=== PATIENT | male | born 1975 | race Two or more races ===

== ENCOUNTER 2025-05-04 18:26 | Emergency (ER) | payer OTHER, SELFPAY ==
[2025-05-04 18:27] VITALS: BMI 26.9
[2025-05-04 18:57] VITALS: BP 159/92; PULSE 79; RESP 20; TEMP 36.8; O2SAT 95
--- NOTE | 2025-05-04 19:02 | PD.EDSKIN ---
ED Skin Abcess FB-RME/HPI General Chief complaint: Dental/Oral/Throat Stated complaint: R FACIAL SWELLING S/P DENTAL INFECTION Time Seen by Provider: 05/04/25 18:38 Arrival date/time: 05/04/25 18:26 50-year-old male patient with no past medical history right-sided facial swelling. Patient woke up this morning with worsening swelling to the right side of the face. Patient's been battling an infection for the last 2 to 3 months, yesterday he had a partial root canal done to the right upper premolar in [place]. This morning he noticed some redness and swelling. Was prescribed amoxicillin which the patient been taking for few days now. Patient denies any difficulty swallowing denies any fever denies any other complaints. Related Data Previous Rx's ?Medication ?Instructions ?Recorded ibuprofen 600 mg tablet 600 mg PO TID PRN pain #30 tabs 08/01/23 clindamycin HCl 300 mg capsule 300 mg PO TID #21 caps 05/04/25 (Cleocin HCl) Allergies Allergy/AdvReac Type Severity Reaction Status Date / Time No Known Allergies Allergy Verified 05/04/25 18:32 Review of Systems Review of Systems Narrative Review of Systems: Review of system reviewed and within normal limits except mentioned in HPI ED Exam Narrative Physical exam: VITAL SIGNS: Reviewed. GENERAL APPEARANCE: Alert and interactive, follows commands, no acute distress, HEAD AND FACE: Non-traumatic. Swelling to the right+ side of the face, slight redness nonfluctuant ENT: PERRL, pink conjunctivitis, eyelid no trauma, Mucous membrane moist.+ Dental cavity noted on the right upper premolar, NECK: Supple, nontender, no nuchal rigidity. CHEST: No tenderness, no crepitus, no paradoxical movement, no retractions. LUNGS: Clear, well ventilated, symmetric, no rales, no wheezing, no ronchi, no stridor, good breath sounds bilaterally. HEART: Regular rate, regular rhythm, no murmur, no gallops. ABDOMEN: Soft, positive bowel sounds, nondistended, no guarding, nontender, no rebound, no masses, RECTAL: Deferred. GENITAL: Deferred. NEUROLOGICAL: Gross motor function intact sensory function intact, Appropriate for age. MUSCULOSKELETAL: low back nontender, full range of motion. EXTREMITIES: Nontender, full range of motion. SKIN: Color pink, dry, no rash, no lacerations, no abrasions, no contusions. LYMPHATICS: Deferred. Course Quality Measures none Orders Category Date Time Status Ketorolac Inj [Toradol Inj] Med 05/04/25 19:01 Discontinued 30 mg IM X1 ONE cefTRIAXone [Rocephin] 1,000 mg Med 05/04/25 19:01 Discontinued Lidocaine 1% 20 ml [Xylocaine 1% 20 ML] 2.1 ml IM X1 Vital Signs Vital signs: Vital Signs Temperature 98.2 F 05/04/25 18:57 Pulse Rate 79 05/04/25 18:57 Respiratory Rate 20 05/04/25 18:57 Blood Pressure 159/92 H 05/04/25 18:57 Pulse Oximetry (%) 95 05/04/25 18:57 Oxygen Delivery Method Room Air 05/04/25 18:57 Skin / Abscess / Foreign Body MDM Narrative MDM Narrative:: 05/04/25 18:26 50-year-old male patient with no past medical history right-sided facial swelling. Patient woke up this morning with worsening swelling to the right side of the face. Patient's been battling an infection for the last 2 to 3 months, yesterday he had a partial root canal done to the right upper premolar in [place]. This morning he noticed some redness and swelling. Was prescribed amoxicillin which the patient been taking for few days now. Patient denies any difficulty swallowing denies any fever denies any other complaints. Patient received subtraction IM and Toradol IM. Imaging is not that at this time. Stable discharge home. Patient data External records reviewed:: None Clinical information provided by:: patient Social determinants that could affect healthcare access:: none Patient has the following chronic illnesses:: None How is presenting disease/condition affected by chronic disease/condition?: no chronic disease Evaluation data The following diagnostics were reviewed and interpreted by me:: other (specify) (None) Lab and/or radiology exams considered but not ordered:: None Interpretation Summary: None Medications / Prescriptions Medications or Prescriptions considered but not ordered:: None Medication administrations:: Medication Administration History Discontinued Medications Ceftriaxone Sodium 1,000 mg/ (Lidocaine HCl 2.1 ml) 0 mg IM X1 ONE Stop: 05/04/25 19:02 Ketorolac Tromethamine (Ketorolac Inj 30 Mg/Ml Vial) 30 mg IM X1 ONE Stop: 05/04/25 19:02 Toradol IM and ceftriaxone IM Consultations Consultation(s) initiated? (list below): No Diagnosis Skin/Abscess Differential Diagnosis: abscess of skin or subcutaneous tissue and other (Infected dental caries, dental abscess) Most likely diagnosis given after review of the tests above:: Infected dental caries Admission Indicated Admission indicated?: not indicated Admission Request Was there a request for admission?: No Disposition Plan Disposition Plan: Discharge Discharge Attestation Discharge Attestation: The patient and all family members were given an opportunity to ask questions and understood the discharge instructions. Discharge instructions specifically effects, indications for sooner follow up or return to the emergency department, and the expected course of current diagnosis. Patient condition: Stable Discharge Plan Plan Patient Disposition: HOME (Self Care) Discharge Disposition comment: stable Prescriptions/Referrals Prescriptions/Med Rec: New clindamycin HCl [Cleocin HCl] 300 mg capsule 300 mg PO TID Qty: 21 0RF No Action ibuprofen 600 mg tablet 600 mg PO TID PRN (Reason: pain) Qty: 30 0RF Problem List Clinical Impression: Infected dental caries Patient/Caregiver Discharge Instructions Discharge Activity: activity as tolerated Education Materials: ED Dental Abscess with Facial ... Additional Instructions: Thank you for the opportunity for serving you today. You are stable for discharged . You are advised to: Follow-up with your dentist in 1 to 2 days Return to ED for worsening of symptoms Increase oral fluids Take medication as prescribed Print Language: Greenlandic Stand Alone Forms: Josi Award Info., Patient Portal Info Letter GAGAN/CYNDY Supervising Physician GAGAN/CYNDY Supervising Physician: MD Bibi
[2025-05-04] MEDS: KETOROLAC INJ 30 MG/ML VIAL IM (19:29)
[2025-05-04] MEDS: cefTRIAXone 1,000 MG, LIDOCAINE 1% 20 ML 2.1 ML IM (19:29)
== END 2025-05-04 19:56 | disposition home or self-care (01) ==
LOC: SERX 19:20
PROVIDERS: Emergency Provider Emergency Medicine; PCP Family Medicine
DX: K04.7 Periapical abscess without sinus (principal); K02.9 Dental caries, unspecified
CPT/HCPCS: 96372; 99282; J0696; J1885; J3490